=== PATIENT | male | born 1970 ===

== ENCOUNTER 2017-04-23 08:56 | Day surgery (SDC) | payer OTHER ==
--- NOTE | 2017-04-22 16:03 | GHP ---
[f rep st] PREOP HISTORY AND PHYSICAL DATE OF ADMISSION: 04/23/2017 CHIEF COMPLAINT: Right foot pain. HISTORY OF PRESENT ILLNESS: The patient is a 46-year-old, history of persistent and progressive rig ht foot pain and arch collapse. PAST MEDICAL HISTORY: Positive for hypertension. PAST SURGICAL HISTORY: Positive for previous orthopedic surgery. SOCIAL HISTORY: Negative for tobacco use. MEDICATIONS: Lisinopril. ALLERGIES: He lists no drug allergies. FAMILY HISTORY: Noncontributory. PHYSICAL EXAM: HEENT: Head is normocephalic. Pupils equal, round, reactive to light. Extraocular eye movements intact. NECK: Supple. No JVD. No lymphadenopathy. CHEST: Clear to auscultation. HEART: Regular rate and rhythm. No murmurs or gallops. ABDOMEN: Soft, nontender, nondistended. GENITAL, RECTAL AND BREAST: Exams were deferred. EXTREMITIES: A severe supple right flatfoot de formity. ASSESSMENT: Right posterior tibial tendon dysfunction/symptomatic flatfoot deformity. PLAN: The patient is scheduled to undergo calcaneal osteotomies, FDL transfer, posterior tibial ten don debridement, medial column arthrodesis. /[id number]/MODL
[2017-04-23] MEDS ORDERED: MIDAZOLAM 2 MG/2 ML VIAL ONE (09:09)
[2017-04-23] MEDS ORDERED: fentaNYL 100 MCG/2 ML INJ ONE (09:09)
[2017-04-23] MEDS ORDERED: PROPOFOL/EMULSION 500 MG/50 ML BOTTLE IV ONE (09:10)
[2017-04-23] MEDS ORDERED: DEXAMETHASONE 4 MG/ML VIAL ONE ×2 (09:10)
[2017-04-23] MEDS ORDERED: LIDOCAINE 2% 5 ML SDV ONE (09:11)
[2017-04-23] MEDS ORDERED: BUPIVACAINE 0.5% 30 ML SDV ONE (09:25)
--- NOTE | 2017-04-23 09:25 | PDANEPAE ---
ANE History of Present Illness 46 year old male with R ankle dysfunction. ANE Past Medical History - Cardiovascular History Hx Hypertension: Yes Hx Arrhythmias: No Hx Chest Pain: No Hx Coronary Artery / Peripheral Vascular Disease: No Hx CHF / Valvular Disease: No Hx Palpitations: No - Pulmonary History Hx COPD: No Hx Asthma/Reactive Airway Disease: No Hx Recent Upper Respiratory Infection: No Hx Oxygen in Use at Home: No - Neurologic History Hx Cerebrovascular Accident: No Hx Seizures: No Hx Dementia: No - Endocrine History Hx Diabetes: No - Renal History Hx Renal Disorders: No - Liver History Hx Hepatic Disorders: No - Neurological & Psychiatric Hx Hx Neurological and Psychiatric Disorders: No - Cancer History Hx Cancer: No - Congenital Disorder History Hx Congenital Disorders: No - GI History Hx Gastrointestinal Disorders: No - Chronic Pain History Chronic Pain: Yes (RT ANKLE) ANE Review of Systems Review of Systems: No URI or fever x2 weeks - Exercise capacity METS (RN): 5 METS - Systems Constitutional: Reports: no symptoms Cardiac: Reports: no symptoms Respiratory: Reports: no symptoms ANE Patient History - Allergies Allergies/Adverse Reactions: No Known Allergies Allergy (Unverified 04/17/17 15:59) - Home Medications Home Medications: Herbal Drugs 04/17/17 [Last Taken 04/20/17] Lisinopril DAILY 04/17/17 [Last Taken 04/23/17] - Anes Hx Anes Hx: no prior problems - Smoking Hx Smoking Status: Never smoked Marijuana use: No - Alcohol Use Alcohol Use: Rarely - Family Anes Hx Family Anes Hx: neg - N/A ANE Labs/Vital Signs - Vital Signs Height: 175.26 cm Weight: 102.512 kg ANE Physical Exam - Airway Mallampati Score: Class 2 Mouth exam: normal dental/mouth exam - Pulmonary Pulmonary: clear to auscultation - Cardiovascular Cardiovascular: regular rate and rhythym - ASA Status ASA Status: II ANE Anesthesia Plan Anesthesia Plan: GA w LMA [facility] Anesthesia: continuous NB, adductor canal FNB, popliteal SNB
[2017-04-23] MEDS ORDERED: BACITRACIN 50,000 UNITS/10 ML SYR IRR ONE (09:27)
[2017-04-23] MEDS ORDERED: POLYMYXIN B SULFATE 500,000 UNIT/10 ML SYR IRR ONE (09:27)
[2017-04-23] MEDS ORDERED: LIDOCAINE 1% 2 ML INJ ID PRN (09:33)
[2017-04-23] MEDS ORDERED: LR 1,000 ML IV ONE (09:33)
--- NOTE | 2017-04-23 10:13 | POSTOPPROG ---
Post Op Note Date of Operation: 04/23/17 Surgeon: Kings Burgess Anesthesia: GET(General Endotracheal) Pre-op Diagnosis: R PTTD, R Gastroc contracture, R flatfoot Post-op Diagnosis: smae Procedure: R Calc Osteotomy x 2, PTT dedridement, gastroc recession, FDL transfer, mid Inf/Abcess present in the surg proc area at time of surgery?: No EBL: Minimal Complications: None
[2017-04-23] MEDS ORDERED: CEFAZOLIN 2 GM/DEXTROSE/100 ML BAG IV ONE (10:29)
[2017-04-23] MEDS ORDERED: THROMBIN (BOVINE) 5,000 UNIT VIAL TP ONE (10:41)
[2017-04-23] MEDS ORDERED: CALCIUM CHLORIDE 1 GM/10 ML INJ ONE (10:41)
[2017-04-23] MEDS ORDERED: ceFAZolin 2 GM/DEXTROSE 100 ML IV ONE (11:00)
[2017-04-23] MEDS ORDERED: ROPIVACAINE 0.2% 1,100 MG in PUMP SET 1 EA NB SCH (11:30)
[2017-04-23] MEDS ORDERED: GLYCOPYRROLATE 0.2 MG/1 ML VIAL ONE (12:19)
[2017-04-23] MEDS ORDERED: ACETAMINOPHEN 500 MG TAB PO PRN (12:30)
[2017-04-23] MEDS ORDERED: OXYCODONE/APAP 5/325 TAB PO PRN (12:30)
[2017-04-23] MEDS ORDERED: NALOXONE HCL 0.4 MG/ML INJ IVP PRN (12:30)
[2017-04-23] MEDS ORDERED: fentaNYL 100 MCG/2 ML INJ IVP PRN (12:30)
[2017-04-23] MEDS ORDERED: ONDANSETRON 4 MG/2 ML VIAL IVP PRN (12:30)
[2017-04-23] MEDS ORDERED: ENALAPRILAT DIHYDRATE 1.25 MG/ML VIAL IVP PRN (12:30)
[2017-04-23] MEDS ORDERED: LABETALOL HCL 5 MG/ML 20 ML MDV IVP PRN (12:30)
[2017-04-23 13:11] VITALS: PULSE 76
[2017-04-23 13:45] VITALS: TEMP 98.1
[2017-04-23 13:46] VITALS: BP 137/87; RESP 10; O2SAT 91
--- NOTE | 2017-04-23 15:52 | POSTANESTH ---
Post Anesthetic Evaluation Cardiovascular Status: Normal, Stable Respiratory Status: Normal, Stable Level of Consciousness/Mental Status: Can Participate in Eval, Alert and Oriented Pain Control: Adequate, Prn Tx Ordered Nausea/Vomiting Control: Adequate, Prn Tx Ordered
--- NOTE | 2017-04-26 15:12 | GOP ---
[f rep st] OPERATIVE REPORT DATE OF OPERATION: 04/23/2017 SURGEON: Kings Burgess MD ANESTHESIA: General plus indwelling popliteal and saphenous nerve blocks performed by the anesthesi ologist at my request for postoperative pain management. PREOPERATIVE DIAGNOSIS: 1. Right posterior tibial tendon dysfunction. 2. Acquired flatfoot deformity. 3. Gastrocnemius contracture. 4. Midfoot instability. POSTOPERATIVE DIAGNOSIS: 1. Right posterior tibial tendon dysfunction. 2. Acquired flatfoot deformity. 3. Gastrocnemius contracture. 4. Midfoot instability. 5. Achilles contracture. PROCEDURE PERFORMED: 1. Right posterior tibial tendon debridement. 2. Right flexor digitorum longus transfer. 3. Right calcaneal medial displacement osteotomy. 4. Right calcaneal lateral lengthening osteotomy. 5. Right naviculocuneiform arthrodesis. 6. Right gastrocnemius recession. 7. Right percutaneous tendo-Achilles lengthening. 8. Intraoperative use of fluoroscopy. 9. Local bone graft. FINDINGS: ESTIMATED BLOOD LOSS: Minimal. INDICATIONS: The patient is a 46 year old with severe flatfoot deformity. Clinically and radiograp hically, he was noted to have advanced stage II posterior tibial tendon dysfunction. As his pain an d functional limitations were persistent in nature and limiting his activities, he was interested in pursuing operative treatment. From an operative standpoint, comprehensive correction of his deform ity was recommended. The patient acknowledged he understood the potential risks, including but not limited to, bleeding, infection, neurovascular damage, loss of limb function, malunion, nonunion, pa in, functional limitations or deformity despite operative treatment, need for hardware removal, and anesthetic risks. He acknowledged he understood the potential risks, planned procedure and postoper ative plan well, and had all questions answered prior to surgery. He gave his consent for the opera tive procedure. DESCRIPTION OF PROCEDURE: The patient was brought in the operating after IV antibiotics were admini stered. Indwelling popliteal and saphenous nerve blocks were performed by the anesthesiologist at y request for postoperative pain management in preop holding. He was placed in the supine position on the operating table, where a general anesthetic was administered. A tourniquet was placed on his right thigh, a bump underneath the right hip and shoulder, and the right lower extremity was preppe d and draped in standard sterile fashion. After marking the incision and Angelo wrap exsanguination, t he tourniquet was inflated to 250. Attention was initially directed towards the gastroc recession. A longitudinal incision was made along the posteromedial aspect of the lower leg at the level of th e musculotendinous junction and the gastrocnemius. Skin and subcutaneous tissue were sharply incise d. Sharp dissection was carried through the superficial posterior compartment fascia in line with t he skin incision. The gastroc tendon was bluntly dissected, retracted with a speculum, and transect ed distal to its musculotendinous junction. Superficial posterior compartment fascia and subcutaneo us tissue were closed with 3-0 Vicryl suture in interrupted fashion. The skin was closed with skin paul. A long oblique incision was made along the course of the posterior tibial tendon, starting above the medial malleolus and curving towards its insertion. Skin and subcutaneous tissue were sharply inci sed. Sharp dissection was carried through the sheath of the posterior tibial tendon. There was not ed to be marked adherence of the remaining portion of the tendon, with the tendon completely absent proximally. Through the same incision, the sheath of the flexor digitorum longus was opened for lat er transfer. Attention was then directed laterally. An oblique incision was made along the lateral aspect of the calcaneal tuberosity. Sharp dissection was carried down to the tuberosity. After protecting the d orsal and plantar aspect of the tuberosity with Hohmann retractors, a saw was utilized to make a sli ghtly Chevron shaped osteotomy in a lateral to medial direction. The osteotomy was opened up with a n osteotome and bone locator. The proximal segment was translated approximately 1 cm medially and secured with two 4.0 mm cortical screws placed in lag fashion through stab incisions on the heel. A rongeur was then utilized to harvest bone graft off the prominent lateral wall of the calcaneal tub erosity. A second osteotomy was then performed. A horizontal incision was made in the distal aspect of the c alcaneus. Skin and subcutaneous tissue were sharply incised. Sharp dissection was carried dorsal t o the peroneal tendons. A portion of the extensor digitorum brevis was elevated. After protecting the dorsal and plantar aspects of the calcaneus near the angle of the same, a saw was utilized to cr eate a vertical osteotomy paralleling the calcaneocuboid joint. The osteotomy was gapped open with bone spreaders. A cortical cancellous wedge ([facility]) of 12 mm in size was drilled in i ts central aspect. The central drill hole was filled with cancellous graft harvested from the local bone graft from the calcaneus. The graft was then soaked in PRP. The graft was then impacted into place. Distal fixation was accomplished with two 2.7 mm screws placed from the anterior process an d distal calcaneus across the osteotomy site in "position mode." An additional 4.0 mm cortical scre w was placed from the superior calcaneal tuberosity across both osteotomy sites. Fluoroscopic views confirmed favorable osteotomy and hardware positions. Subcutaneous tissue was closed with 3-0 Vicr yl suture in interrupted fashion. Skin was closed with 3-0 nylon in interrupted vertical mattress s utures. Attention was then redirected medially. The naviculocuneiform joint was identified. Utilizing a ch pao, rongeur and curettes, the articular surface was denuded. In preparation for arthrodesis, subc hondral bone was drilled multiple times with a 2.0 mm drill bit and further roughened with a chisel. The cuneiform was plantar flexed and slightly medially translated and secured with two 4.0 mm maribeth ical screws placed in lag fashion from the navicular into the medial cuneiform. Fluoroscopic views confirmed favorable arthrodesis and hardware positions. The FDL tendon was then transected. This w as secured into the stump of the posterior tibial tendon under appropriate tension at multiple point s with #1 PDS suture. The sheath over the flexor digitorum longus was closed with 2-0 Vicryl suture in interrupted fashion. Subcutaneous tissue was closed with 3-0 Vicryl suture in interrupted fashi on. Skin was closed with skin paul. Examination, despite the previous gastroc recession after c orrection of the deformity, showed persistent Achilles tightness. A percutaneous lengthening with t he proximal and distal medial and central lateral hemitransection (Ninfa) was performed allowing for adequate dorsiflexion. The stab incisions were closed with paul. The wounds were dressed with s terile Adaptic, 4x4 and Webril. The leg was placed in a below-knee splint. The patient tolerated the procedure well and was taken to the recovery room, extubated and in stable condition postoperatively. All sponge, needle and instrument counts were reported as being correct . DRAINS: None. COMPLICATIONS: None. PLAN: The patient will be discharged home nonweightbearing on his operative extremity. /[id number]/MODL
== END 2017-04-23 14:30 | disposition home or self-care (01) ==
LOC: FSGY 08:56
PROVIDERS: ATTEND Orthopaedic Surgery Foot and Ankle Surgery
PROC: 0LNS0ZZ Release Right Ankle Tendon, Open Approach (ICD-10-PCS; principal; 2017-04-23 10:45)
PROC: 0LXN0ZZ Transfer Right Lower Leg Tendon, Open Approach (ICD-10-PCS; principal; 2017-04-23 10:45)
PROC: 0Q8L0ZZ Division of Right Tarsal, Open Approach (ICD-10-PCS; principal; 2017-04-23 10:45)
DX: M21.41 Flat foot [pes planus] (acquired), right foot (principal); M76.821 Posterior tibial tendinitis, right leg; M62.461 Contracture of muscle, right lower leg; I10 Essential (primary) hypertension
CPT/HCPCS: C1713; C1762; J0690; J1100; J2250; J2704; J2795; J3010